=== PATIENT | male | born 1995 | race Caucasian/White ===

== ENCOUNTER 2016-08-22 21:30 | Emergency (ER) | payer SELFPAY ==
[2016-08-22 21:43] VITALS: BP 137/81
--- NOTE | 2016-08-22 22:22 | EDM.PDOC ---
ED HPI GENERAL MEDICAL PROBLEM - General Chief Complaint: ENT Problem Stated Complaint: SORE THROAT, FEVER Time Seen by Provider: 08/22/16 21:32 Source of Information: Reports: Patient History Limitations: Reports: No Limitations - History of Present Illness INITIAL COMMENTS - FREE TEXT/NARRATIVE: This is a 21-year-old male. For the last week he has been having a sore throat with headaches with sinus drainage and a productive cough. He comes to the ER for evaluation. He denies any chills or night sweats. He says he hasn' t had a fever. He's had no nausea vomiting or diarrhea. Due to the persistence of his upper respiratory type symptoms and his cough he comes to the ER for evaluation. He apparently had been eating fine drinking fluids without difficulty Throat Pain Score (Numeric/FACES): 6 - Related Data Allergies Allergy/AdvReac Type Severity Reaction Status Date / Time No Known Allergies Allergy Verified 08/22/16 21:38 Home Meds: Home Meds Amoxicillin/Clavulanate K [Augmentin 875 MG/125 MG] 1 tab PO Q12HR #14 tablet [Rx] Past Medical History - Past Health History Medical/Surgical History: Denies Medical/Surgical History Social & Family History - Tobacco Use Smoking Status *Q: Never Smoker - Caffeine Use Caffeine Use: Reports: Tea - Recreational Drug Use Recreational Drug Use: No ED ROS ENT - Review of Systems Review Of Systems: See Below Constitutional: Denies: Fever, Chills HEENT: Reports: Rhinitis, Sinus Problem, Throat Pain Respiratory: Reports: Cough, Sputum Endocrine: Reports: No Symptoms GI/Abdominal: Reports: No Symptoms : Reports: No Symptoms Musculoskeletal: Reports: No Symptoms Skin: Reports: No Symptoms Neurological: Reports: No Symptoms Psychiatric: Reports: No Symptoms Hematologic/Lymphatic: Reports: No Symptoms ED EXAM, ENT - Physical Exam Exam: See Below Exam Limited By: No Limitations General Appearance: Alert, WD/WN, No Apparent Distress Eye Exam: Bilateral Eye: Normal Inspection Ears: Normal External Exam, Normal Canal, Normal TMs Nose: Clear Rhinorrhea, Nasal Discharge Mouth/Throat: Other (Tonsils are enlarged and inflamed but no exudates are noted , he has some mild lymphadenopathy at the angle of the jaw, there is some postnasal drainage noted) Head: Normocephalic Neck: Supple, Full Range of Motion Respiratory/Chest: No Respiratory Distress, Lungs Clear, Normal Breath Sounds Cardiovascular: Regular Rate, Rhythm, No Murmur GI/Abdominal: Soft Back: Full Range of Motion Extremities: Normal Inspection, Normal Range of Motion Neurological: Alert, Oriented Psychiatric: Normal Affect, Normal Mood Skin: Warm, Dry Lymphatic: Other (See above for lymph enlargement at the angle of the jaw) Course - Vital Signs Last Recorded V/S: Last Vital Signs Temp 98.3 F 08/22/16 21:41 Pulse 80 08/22/16 21:41 Resp 20 08/22/16 21:41 BP 137/81 08/22/16 21:41 Pulse Ox 98 08/22/16 21:41 - Orders/Labs/Meds Orders: Active Orders 24 hr Category Date Time Status CULTURE STREP A CONFIRMATION [RM] Stat Lab 08/22/16 21:45 Results STREP SCRN A RAPID W CULT CONF [] Stat Lab 08/22/16 21:45 Results - Re-Assessments/Exams Free Text/Narrative Re-Assessment/Exam: 08/22/16 23:27 Spoke to the patient regarding his negative strep test. Departure - Departure Time of Disposition: 23:27 Disposition: Home, Self-Care 01 Condition: good Clinical Impression: Tonsillitis - Discharge Information Prescriptions: Amoxicillin/Clavulanate K [Augmentin 875 MG/125 MG] 1 tab PO Q12HR #14 tablet Forms: ED Department Discharge Additional Instructions: Get your antibiotics tomorrow and start taking them, [facility] is open tomorrow it is the store [facility], drink lots of fluids especially water and juices but avoid sugar caffeine and sodas since they make your throat more sore, if your symptoms worsen followup with your family doctor or return to the ER - My Orders Last 24 Hours: My Active Orders 08/22/16 21:45 CULTURE STREP A CONFIRMATION [RM] Stat STREP SCRN A RAPID W CULT CONF [] Stat - Assessment/Plan Last 24 Hours: My Active Orders 08/22/16 21:45 CULTURE STREP A CONFIRMATION [RM] Stat STREP SCRN A RAPID W CULT CONF [RM] Stat
== END 2016-08-22 23:44 | disposition home or self-care (01) ==
LOC: JD.ED 21:30
DX: J03.90 Acute tonsillitis, unspecified (principal)
CPT/HCPCS: 87081; 87430; 99283